=== PATIENT | male | born 1975 | race Caucasian/White ===

== ENCOUNTER 2025-11-24 10:26 | Emergency (ER) | payer OTHER, SELFPAY ==
--- NOTE | ~2025-11-24 | CT_ITS ---
CLINICAL HISTORY: RLQ pain, concern for appy CT abdomen and pelvis with contrast Comparison: None provided Findings: The lung bases are clear. There is a 7 mm calculus within the right distal ureter immediately proximal to the ureterovesical junction. There is moderate right-sided hydronephrosis, mild right-sided hydroureter, relative decreased enhancement of the right kidney and infiltration of fat within the right perinephric space. Remaining abdominal organs are unremarkable. There are no calcified gallstones. No bowel obstruction, pneumoperitoneum, or pneumatosis. Pelvic contents unremarkable. Normal appendix. The bones are intact. IMPRESSION: 7 mm calculus within the right distal ureter causing high-grade obstructive uropathy of the right kidney. This document has been electronically signed by: Simin Huang MD on 11/24/2025 16:32:40
[2025-11-24 10:32] VITALS: BP 129/84; PULSE 94; RESP 18; TEMP 36.8; O2SAT 95; BMI 24.3
--- NOTE | 2025-11-24 10:33 | ED.GENADULT ---
HPI - General Adult General Chief complaint: Abdominal Pain Stated complaint: stomach/back pain Time Seen by Provider: 11/24/25 14:01 Source: patient Mode of arrival: ambulatory Limitations: no limitations History of Present Illness ED Provider: Sammie Juan PA-C HPI narrative: Patient is a 50 year old male with no reported medical history presenting to the emergency department today with right lower abdominal pain, groin pain, back pain, and nausea + vomiting. Patient states that over the last day he has had right lower quadrant abdominal pain that radiates down into his right scrotum and his right low back with nausea and vomiting. Patient denies any other complaints at this time. Related Data Previous Rx's ?Medication ?Instructions ?Recorded prednisone 20 mg tablet 20 mg PO DAILY 5 days #5 tabs 11/24/25 tamsulosin 0.4 mg capsule 0.4 mg PO DAILY #7 caps 11/24/25 Allergies Allergy/AdvReac Type Severity Reaction Status Date / Time No Known Allergies (No Known Allergy Verified 11/24/25 10:32 Allergies*) Review of Systems Constitutional: Constitutional: Reports as per HPI Eyes: Eyes: Reports as per HPI ENT: Reports as per HPI Cardiovascular: Cardiovascular: Reports as per HPI Respiratory: Respiratory: Reports as per HPI Gastrointestinal: Gastrointestinal: Reports as per HPI Genitourinary: Genitourinary: Reports as per HPI Musculoskeletal: Musculoskeletal: Reports as per HPI Integumentary/Breasts: Skin/Breast: Reports as per HPI Neurologic: Reports as per HPI Psychiatric: Psychiatric: Reports as per HPI Endocrine: Endocrine: Reports as per HPI Hematologic/Lymphatic: Hematologic/Lymphatic: Reports as per HPI Allergic/Immunologic: Allergic/Immunologic: Reports as per HPI [facility] Past Medical History Attestation statement: The following information was validated with the patient. Source: old records reviewed and nursing notes reviewed Social History Social History Smoked in Last 30 Days: Yes Use of substances other than those prescribed or required for medical reasons: No Advance Directives: No Advance Directives Information Provided: Yes Do you have a plan to hurt others: No Plan Physical Exam ED Vital Signs: Vital Signs - 24 hr 11/24/25 10:32 11/24/25 16:07 Temperature 98.3 F 98.3 F Pulse Rate 94 89 Respiratory Rate 18 18 Blood Pressure 129/84 134/79 Pulse Oximetry 95 95 Oxygen Delivery Method Room Air Room Air BMI result Body Mass Index 24.3 Const General: cooperative, alert and awake Orientation/consciousness: patient oriented x3 HENMT Head: Yes normal to inspection and Yes atraumatic Ears: hearing grossly normal bilaterally and external ears normal General nose exam: Normal external nose present, no nasal discharge noted and no epistaxis Face and sinus: Yes normal facial exam, No abrasion and No laceration Mouth: Normal oral and palatal mucosa present, no drooling and no muffled voice Eyes General: appearance normal, both eyes and all related structures Periorbital: periorbital findings normal Eyelids: Yes eyelids normal Conjunctivae: conjunctivae normal Pupils: Equal, round and reactive pupils present EOM: EOMs intact bilaterally Resp Effort & Inspection: normal respiratory effort and able to speak in complete sentences Neuro General: patient oriented x3, moves all extremities and CN's II-XI intact bilaterally Cranial nerves: Yes Equal, round and reactive pupils present Cognition (Neuro): normal cognition Extrem General: Yes full ROM Psych Appearance: grossly normal Mental Status: mental status grossly normal Attitude: cooperative Course Course Course Narrative: Rapid medical examination performed in triage by Sammie Juan PA-C: Patient is a 50 year old male presenting to the emergency department with right sided abdominal pain, nausea, vomiting, and diarrhea. Detailed physical exam and review of systems are deferred to the clinical statistical programmer. Labs ordered. Patient placed back in the waiting room pending room availability and results. Medications Administered Discontinued Medications Generic Name Dose Route Start Last Admin Trade Name Freq PRN Reason Stop Dose Admin Sodium Chloride 1,000 mls @ 999 mls/hr 11/24/25 14:15 11/24/25 16:08 Ns IV 11/24/25 15:15 Infused .Q1H1M [facility] Infusion Iohexol 100 ml 11/24/25 15:08 11/24/25 15:08 Iohexol 350 Mg/Ml 100 Ml Infus..Btl IV 11/24/25 15:09 85 ml ONCE ONE Administration Ketorolac Tromethamine 15 mg 11/24/25 15:58 11/24/25 16:08 Ketorolac Tromethamine 15 Mg/Ml Vial IVPUSH 11/24/25 15:59 15 mg ONCE ONE Administration Morphine Sulfate 4 mg 11/24/25 14:01 11/24/25 14:18 Morphine Sulfate 4 Mg/Ml Cartridge IVPUSH 11/24/25 14:02 4 mg ONCE ONE Administration Protocol Ondansetron HCl 4 mg 11/24/25 14:01 11/24/25 14:18 Ondansetron Hcl 4 Mg/2 Ml Vial IVPUSH 11/24/25 14:02 4 mg ONCE ONE Administration Medical Decision Making Medical Decision Making [facility] Narrative: Patient is a 50 year old male with no reported medical history presenting to the emergency department today with right lower abdominal pain, groin pain, back pain, and nausea + vomiting. Patient's physical exam was as noted in the physical exam portion of this note. Patient's blood work was unremarkable. Patient's urine showed no acute process. Patient's CT abd/pelvis showed a 7mm calculus within the right distal ureter causing high-grade obstructive uropathy of the right kidney. Patient received IV fluids, toradol, morphine, and zofran which, upon re-evaluation, he stated it helped his symptoms significantly. I spoke with Dr. Rodríguez, the urologist nutrition professor, who recommended discharge home with 20mg of prednisone x5 days + flomax and outpatient follow up with strict return precautions. I explained my physical exam findings as well as all test results to the patient. I answered all questions asked by the patient. I stressed the importance of the patient taking his medication as directed (either prescribed or as the over the counter packaging recommends). I stressed the importance of the patient following up with his primary care provider and the urologist. I stressed the importance of the patient returning to the emergency department immediately if his symptoms were to worsen or if he were to develop any dizziness, shortness of breath, difficulty breathing, chest pain, blurry vision, loss of vision, nausea, vomiting, abdominal pain, fever, chills, back pain, or any other complaints. Patient verbalized agreement and understanding with this treatment plan and discharge. Differential Diagnosis Differential Diagnoses: The differential diagnosis associated with the presentation includes Kidney stone Flank pain Abd pain Admission/Observation Consideration of admission/observation: Escalation of care including admission/observation considered Patient would have been admitted to the hospital had her work up had any findings where hospital admission was appropriate and her clinical presentation warranted hospital admission. Consult Healthcare Provider Management of the patient was discussed with: Head Char Filter Tank Tender (spoke with Dr. Rodríguez as noted in the MDM Rationale portion of this note. ) Lab Data MDM Lab Attestation statement: I reviewed the patient's lab results. My interpretation of these results are in the MDM Rationale portion of this note. 11/24/25 10:55 11/24/25 10:55 Labs: Lab Results 11/24/25 11/24/25 Range/Units 10:55 14:04 WBC 10.7 (4.8-10.8) X10*3/uL RBC 4.55 L (4.60-5.80) X10*6/uL Hgb 14.3 (14.0-18.0) g/dl Hct 41.5 L (42.0-52.0) % MCV 91.2 (80.0-98.0) fL MCH 31.4 (27.0-33.0) pg MCHC 34.5 (31.0-36.0) g/dl RDW 12.4 (11.0-16.0) % Plt Count 275 (160-400) X10*3/uL MPV 9.1 L (9.4-12.4) fL Immature Gran % (Auto) 0.5 H (0.0-0.4) % Neut % (Auto) 71.2 (45-73) % Lymph % (Auto) 17.4 L (20-40) % [place] % (Auto) 9.7 (2-11) % Eos % (Auto) 0.9 (0-4) % Baso % (Auto) 0.3 (0-2) % Lymph # (Auto) 1.9 (1.2-4.9) X10*3/uL [place] # (Auto) 1.0 (0.1-1.2) X10*3/uL Eos # (Auto) 0.1 (0.0-0.4) X10*3/uL Baso # (Auto) 0.0 (0.0-0.2) X10*3/uL Abs Immat Gran (auto) 0.05 H (0.00-0.03) X10*3/uL Absolute Neuts (auto) 7.6 (2.0-8.3) x10*3/uL Absolute Nucleated RBC 0.000 (0.0-0.012) X10*3/uL Nucleated RBC % (auto) 0.0 (0.0-0.2) /100WBC Sodium 141 (135-145) mmol/L Potassium 4.0 (3.3-5.1) mmol/L Chloride 109 H (96-108) mmol/L Carbon Dioxide 22 (22-29) mmol/L Anion Gap 14 (12-20) BUN 19 H (9-16) mg/dL Creatinine 1.22 (0.5-1.4) mg/dL Estim Creat Clear Calc 76.2 Estimated GFR > 60 Random Glucose 106 (60-115) mg/dL Calcium 9.1 (8.4-10.2) mg/dL Magnesium 2.1 (1.6-2.6) mg/dL Total Bilirubin 0.4 (0.0-1.0) mg/dL AST 24 (5-37) U/L ALT 25 (0-40) U/L Alkaline Phosphatase 83 (39-117) U/L Total Protein 7.0 (6.5-8.0) g/dL Albumin 4.3 (3.5-5.0) g/dL Urine Color Yellow Urine Appearance Clear Urine pH 8.0 (5.0-9.0) Ur Specific [place] 1.025 (1.005-1.025) Urine Protein 30 (1+) H (Neg-Trace) mg/dL Urine Glucose (UA) Negative (Negative) mg/dL Urine Ketones Negative (Negative) mg/dL Urine Blood Moderate (2+) H (Negative) Urine Nitrite Negative (Negative) Ur Leukocyte Esterase Negative (Negative) Urine RBC >20 H (0-2) /HPF Urine WBC 0-5 (0-5) /HPF Ur Squamous Epith Cells 0-2 (0-2) /HPF Urine Bacteria None Seen (None Seen) Hyaline Casts 0-2 (0-2) /LPF Influenza Type A (PCR) NEGATIVE (Negative) Influenza Type B (PCR) NEGATIVE (Negative) RSV RNA Qual (PCR) NEGATIVE (Negative) SARS-CoV-2 RNA (RT-PCR) NEGATIVE (Negative) Independent Interpretation I performed an independent interpretation of an: CT Scan Interpretation: My interpretation is in agreement with the radiologist's impression of this imaging study as written below. CLINICAL HISTORY: RLQ pain, concern for appy CT abdomen and pelvis with contrast Comparison: None provided Findings: The lung bases are clear. There is a 7 mm calculus within the right distal ureter immediately proximal to the ureterovesical junction. There is moderate right-sided hydronephrosis, mild right-sided hydroureter, relative decreased enhancement of the right kidney and infiltration of fat within the right perinephric space. Remaining abdominal organs are unremarkable. There are no calcified gallstones. No bowel obstruction, pneumoperitoneum, or pneumatosis. Pelvic contents unremarkable. Normal appendix. The bones are intact. IMPRESSION: 7 mm calculus within the right distal ureter causing high-grade obstructive uropathy of the right kidney. This document has been electronically signed by: Simin Huang MD on 11/24/2025 16:32:40 Dictated By: Simin Huang MD Signed By: Electronically signed by Simin Huang MD 11/24/25 4522 Radiology Impression Discussion of test interpretation with radiology: I have reviewed the radiologist's reading. Critical Care Time Critical Care Time Critical Care Time: Yes Total Critical Care Time: 43 Attestation: I spent 43 minutes of Critical Care Time with this patient. This does not include time spent on separately reported billable procedures. Discharge Plan Discharge Clinical Impression: Calculus of kidney Patient Disposition: Home, Self-Care Instructions: Kidney Stones (ED), Hydronephrosis (ED) Additional Instructions: Your work up today showed evidence of a right sided kidney stone that is causing some obstruction. I spoke with the urologist who recommends taking the medication I've prescribed (how it's prescribed) and following up with them in the office on an outpatient basis. IF you are prescribed home medications and/or you are taking over the counter medications at home - it is very important you continue to do so as prescribed / directed unless told otherwise by a healthcare provider. Follow up with your primary care provider. Do your best to stay well hydrated and rest. Return to the emergency department immediately if your symptoms worsen or if you develop any numbness, tingling, dizziness, shortness of breath, difficulty breathing, chest pain, blurry vision, loss of vision, nausea, vomiting, abdominal pain, fever, chills, back pain, or any other complaints. If you do not have a primary care provider - call any of the below numbers to establish and follow up with a primary care provider. [facility] Primary Care ([place]) [phone] [place] [address], [address] [facility] Primary Care ([address] [place]) [phone] [address] [facility], [address] [facility], [address] [facility] Primary Care ([address] [place]) [phone] [place] [address], [address] [facility], [address] [facility] Primary Care ([place]) [phone] [place] [address], [address] [facility], [address] [facility] Family Medicine [phone] [address] [facility], [address] Please see the information below about our Patient Portal. If you are not yet enrolled in the [facility] Patient Portal, you will receive an enrollment email invitation following your visit to any [facility] care setting. You may also self-enroll in the Patient Portal by visiting our website: [email or web address] The following information is required to access the Patient Portal: - Your [facility] Medical Record Number - Your personal home email address (must match what is in your electronic medical record, Registration staff can assist with this) - Name - Date of Capabilities of the Patient Portal: - Message some providers - View upcoming appointments - Access your health summary, medical history, and visit history - View current conditions and allergies - View procedure and lab results - View your medications, including guidelines, side effects, and precautions - Complete pre-appointment questionnaires requested by your provider - Ready summary reports of your office visits and procedures To access the Patient Portal Mobile [employer], follow these directions: - Search [employer] in the [employer] Store or [employer] Store - Download the [employer] - Search for [facility] - Enter your login/password Prescriptions: New prednisone 20 mg tablet 20 mg PO DAILY 5 Days Qty: 5 0RF tamsulosin 0.4 mg capsule 0.4 mg PO DAILY Qty: 7 0RF Referrals: [facility] Urology Services [Provider Group, Urology] Referral Note: [facility] Urology will call you on Wednesday to discuss an appointment time. If you do NOT hear from them on Wednesday, please call the number provided. Stand Alone Forms: Work/School Release Interventions: ED Discharge Assessment Last Done: 11/24/25 17:08 Print Language: Mauritian
[2025-11-24 11:01] LABS: MANUAL DIFF FLAG NO
[2025-11-24 11:06] LABS: Hematocrit 41.5 % (42.0-52.0); Hemoglobin 14.3 g/dl (14.0-18.0); Imm Gran Abs Auto 0.05 X10*3/uL (0.00-0.03); Imm Gran Pct Auto 0.5 % (0.0-0.4); Lymphocytes Absolute Auto 1.9 X10*3/uL (1.2-4.9); Mean Corpuscular HGB Conc 34.5 g/dl (31.0-36.0); Mean Corpuscular Hemoglobin 31.4 pg (27.0-33.0); Mean Corpuscular Volume 91.2 fL (80.0-98.0); NRBC Abs Auto 0.000 X10*3/uL (0.0-0.012); NRBC Pct Auto 0.0 /100WBC (0.0-0.2); Platelet Count 275 X10*3/uL (160-400); Red Blood Count 4.55 X10*6/uL (4.60-5.80); White Blood Count 10.7 X10*3/uL (4.8-10.8)
[2025-11-24 11:19] LABS: Alanine Aminotransferase 25 U/L (0-40); Albumin Level 4.3 g/dL (3.5-5.0); Alkaline Phosphatase 83 U/L (39-117); Anion Gap 14 (12-20); Aspartate Amino Transferase 24 U/L (5-37); Blood Urea Nitrogen 19 mg/dL (9-16); Calcium 9.1 mg/dL (8.4-10.2); Carbon Dioxide 22 mmol/L (22-29); Chloride 109 mmol/L (96-108); Creatinine Clr Calc Pharmacy 76.2; Estimated Glomerular Filt Rate > 60; Magnesium 2.1 mg/dL (1.6-2.6); Potassium 4.0 mmol/L (3.3-5.1); Sodium 141 mmol/L (135-145); Total Protein 7.0 g/dL (6.5-8.0)
[2025-11-24 11:42] LABS: Resp Syncy Virus RNA Qual PCR NEGATIVE (Negative); SARS COV2 PCR INHOUSE NEGATIVE (Negative)
[2025-11-24 14:18] LABS: Appearance Urine Clear; Glucose Urine UA Negative (Negative); PH 8.0 (5.0-9.0); Specific Gravity - Urine 1.025 (1.005-1.025); UMIC TRIGGER UACC YES
[2025-11-24] MEDS: iohexoL 350 MG/ML 100 ML INFUS..BTL IV (15:08)
[2025-11-24 16:07] VITALS: BP 134/79; PULSE 89; RESP 18; TEMP 36.8; O2SAT 95
[2025-11-24 17:08] VITALS: BP 134/79; PULSE 89; RESP 18; TEMP 36.8; O2SAT 95
== END 2025-11-24 17:09 | disposition home or self-care (01) ==
PROVIDERS: Physician Assistant Medical; Emergency Provider Emergency Medicine
DX: N13.2 Hydronephrosis with renal and ureteral calculous obstruction (principal); R10.31 Right lower quadrant pain; Z03.818 Encounter for observation for suspected exposure to other biological agents ruled out
CPT/HCPCS: 74177; 80053; 81001; 83735; 85025; 87637; 96361; 96374; 96375; 99284; 99285; J1885; J2270; J2405; Q9967

== ENCOUNTER → 2025-11-24 14:01 | Outpatient (BNV) | payer OTHER, SELFPAY | PROVIDERS: Visit Provider Radiology Diagnostic Radiology | DX: N20.1 Calculus of ureter (principal); N13.8 Other obstructive and reflux uropathy | CPT/HCPCS: 74177 ==